=== PATIENT | female | born 1955 | race Caucasian/White ===

== ENCOUNTER 2024-10-23 22:22 | Emergency (ER) | payer MEDICARE, BC ==
[~2024-10-23] VITALS: Ht 157.5 cm; Wt 94.5 kg
[~2024-10-23 22:22] MED LIST: CARBIDOPA-LEVO1 EACH PO; CLONAZEPAM0.5 MG PO; FLUTICASONE PRO16 GM NAS; LEVOTHYROXINE200 MCG PO; RESTASIS1 DROP OD; SIMVASTATIN10 MG PO; TRAZODONE HCL50 MG PO; VENLAFAXINE HCL75 M1 PO
[2024-10-23] MEDS ORDERED: ENTRESTO 24 MG1 EACH PO (22:44)
[2024-10-23] MEDS ORDERED: DOXYCYCLINE MO100 MG PO (22:44)
[2024-10-23] MEDS ORDERED: CARVEDILOL25 MG PO (22:45)
[2024-10-23] MEDS ORDERED: FUROSEMIDE20 MG PO (22:45)
[2024-10-23] MEDS ORDERED: TIZANIDINE HCL2 MG PO (22:45)
[2024-10-23] MEDS ORDERED: DESONIDE15 GM TOP (22:47)
[2024-10-24] MEDS ORDERED: KETOROLAC TROMETHAMINE 30 MG/ML VIAL IM ONE (00:15)
[2024-10-24] MEDS ORDERED: LIDOCAINE HCL 4% 1 EACH PATCH TD ONE (02:00)
[2024-10-24] MEDS ORDERED: LIDODERM1 EACH TOP (02:01)
[2024-10-24 02:07] VITALS: BP 116/63
== END 2024-10-24 02:06 | disposition home or self-care (01) ==
LOC: ED 22:22
DX: S39.012A Strain of muscle, fascia and tendon of lower back, initial encounter (principal); I10 Essential (primary) hypertension; E11.9 Type 2 diabetes mellitus without complications; W07.XXXA Fall from chair, initial encounter; Z79.899 Other long term (current) drug therapy; Z79.51 Long term (current) use of inhaled steroids; Z88.1 Allergy status to other antibiotic agents; Z88.2 Allergy status to sulfonamides; Z88.5 Allergy status to narcotic agent; Z88.8 Allergy status to other drugs, medicaments and biological substances; Z91.048 Other nonmedicinal substance allergy status
CPT/HCPCS: 72131; 96372; 99283-25; A9270; J1885

== ENCOUNTER 2024-10-26 12:46 | Emergency (ER) | payer MEDICARE, BC ==
[~2024-10-26] VITALS: Ht 157.5 cm; Wt 101.2 kg
[~2024-10-26 12:46] MED LIST changes: +CARVEDILOL25 MG PO; +DESONIDE15 GM TOP; +DOXYCYCLINE MO100 MG PO; +ENTRESTO 24 MG1 EACH PO; +FUROSEMIDE20 MG PO; +LIDODERM1 EACH TOP; +TIZANIDINE HCL2 MG PO
--- OUTSIDE RECORDS SUMMARY | 2024-10-26 12:53 | XMS ---
PreManage Notification: HAZEL HENRIQUEZ Security Network Lead Events No recent Security Events currently on file CRITERIA MET - [facility] - 2 Visits in 30 Days CARE PROVIDERS There are no care providers on record at this time. [place] has no Care Guidelines for this patient. [facility]12 MO.) [facility] NOTE: Visits indicate total known visits. ED/C VISIT TRACKING (12 MO.) [facility]24 [facility] COMPLAINT: - BACK PAIN 10/23/2024 22:[address] [facility] [place] TYPE: Emergency COMPLAINT: - BACK PAIN DIAGNOSES: - Allergy status to narcotic agent - Allergy status to other antibiotic agents - Allergy status to other drugs, medicaments and biological substances - Allergy status to sulfonamides - Essential (primary) hypertension - Fall from chair, initial encounter - retirement (current) use of inhaled steroids - Low back pain, unspecified - Other fdc (current) drug therapy - Other nonmedicinal substance allergy status - Strain of muscle, fascia and tendon of lower back, initial encounter - Type 2 diabetes mellitus without complications INPATIENT VISIT TRACKING (12 MO.) No inpatient visits to display in this time frame [id number]
[2024-10-26] MEDS ORDERED: METFORMIN HCL500 M1 PO (14:59)
[2024-10-26] MEDS ORDERED: KETOROLAC TROMETHAMINE 30 MG/ML VIAL IM ONE (15:00)
[2024-10-26] MEDS ORDERED: METHOCARBAMOL500 MG PO (15:03)
[2024-10-26 15:38] VITALS: BP 136/95
== END 2024-10-26 15:15 | disposition home or self-care (01) ==
LOC: ED 12:46
DX: S50.812A Abrasion of left forearm, initial encounter (principal); S50.811A Abrasion of right forearm, initial encounter; S60.819A Abrasion of unspecified wrist, initial encounter; S80.819A Abrasion, unspecified lower leg, initial encounter; M54.50 Low back pain, unspecified; G89.29 Other chronic pain; I10 Essential (primary) hypertension; E11.9 Type 2 diabetes mellitus without complications; G47.30 Sleep apnea, unspecified; W01.0XXA Fall on same level from slipping, tripping and stumbling without subsequent striking against object, initial encounter; Z87.891 Personal history of nicotine dependence; Z79.899 Other long term (current) drug therapy; Z79.51 Long term (current) use of inhaled steroids; Z91.048 Other nonmedicinal substance allergy status; Z88.5 Allergy status to narcotic agent; Z88.1 Allergy status to other antibiotic agents; Z88.2 Allergy status to sulfonamides; Z88.8 Allergy status to other drugs, medicaments and biological substances
CPT/HCPCS: 96372; 99283-25; J1885

== ENCOUNTER 2024-12-07 12:41 | Emergency (ER) | payer MEDICARE, BC ==
[~2024-12-07] VITALS: Ht 157.5 cm; Wt 101.2 kg
[~2024-12-07 12:41] MED LIST changes: +METFORMIN HCL500 M1 PO; +METHOCARBAMOL500 MG PO
[2024-12-07] MEDS ORDERED: METHOCARBAMOL750 MG PO (13:23)
[2024-12-07] MEDS ORDERED: HYDROCODON-ACE1 EA11 PO (13:23)
[2024-12-07] MEDS ORDERED: GABAPENTIN300 MG PO (13:24)
[2024-12-07] MEDS ORDERED: ONDANSETRON ODT4 MG PO (13:31)
[2024-12-07 14:05] VITALS: BP 126/74
== END 2024-12-07 14:05 | disposition home or self-care (01) ==
LOC: ED 12:41
DX: G89.18 Other acute postprocedural pain (principal); M79.645 Pain in left finger(s); I10 Essential (primary) hypertension; E11.9 Type 2 diabetes mellitus without complications; G47.30 Sleep apnea, unspecified; Z79.51 Long term (current) use of inhaled steroids; Z79.84 Long term (current) use of oral hypoglycemic drugs; Z79.899 Other long term (current) drug therapy; Z91.048 Other nonmedicinal substance allergy status; Z88.5 Allergy status to narcotic agent; Z88.2 Allergy status to sulfonamides; Z88.1 Allergy status to other antibiotic agents; Z88.8 Allergy status to other drugs, medicaments and biological substances; Z87.891 Personal history of nicotine dependence
CPT/HCPCS: 99283

== ENCOUNTER 2025-03-26 10:50 | Day surgery (SDC) | payer MEDICARE, BC ==
[~2025-03-26] VITALS: Ht 157.5 cm; Wt 95.0 kg
[~2025-03-26 10:50] MED LIST changes: +GABAPENTIN300 MG PO; +HYDROCODON-ACE1 EA11 PO; +IBLOOD GLUCOSE TEST STRIP 1 EA TEST VI PRN; +LACTATED RINGER'S 1,000 ML IV SCH; +LIDOCAINE HCL 1% 5 ML SDV INJ ONE; +LIOTHYRONINE SO5 MCG PO; +METHOCARBAMOL750 MG PO; +OMEPRAZOLE20 MG PO; +ONDANSETRON ODT4 MG PO; +SYNTHROID150 MCG PO; +WEGOVY0.5 MG/0.5 SUB-Q
[2025-03-26 11:01] VITALS: BP 132/80
[2025-03-26] MEDS ORDERED: LIDOCAINE HCL 2% 5 ML SDV ONE (12:20)
[2025-03-26] MEDS ORDERED: fentaNYL citrate 100 MCG/2 ML VIAL ONE (13:49)
[2025-03-26] MEDS ORDERED: MIDAZOLAM HCL 5 MG/5 ML VIAL ONE (13:49)
[2025-03-26] MEDS ORDERED: SODIUM CHLORIDE 0.9% 100 ML IV ONE (13:51)
--- NOTE | 2025-03-26 13:53 | NUR ---
03/26/25 Tanvir3 Eve Ag PATIENT IS AWAKE. SHE DENIES PAIN. OXYGEN SATURATION REMAINS 100% ON 4L VIA NC. OXYGEN IS DISCONTINUED AT THIS TIME.
[2025-03-26 14:17] VITALS: BP 118/99
--- NOTE | 2025-03-26 15:55 | OR ---
[facility] [address], [place] [address] Signed DATE OF OPERATION: 03/26/2025 SURGEON: Blanca Salinas MD PREOPERATIVE DIAGNOSIS: Persistent constipation. POSTOPERATIVE DIAGNOSES: 1. Extensive sigmoid and left-sided diverticulosis. 2. Small polyps x3. PROCEDURE: Total colonoscopy to cecum with cold morcellation polypectomy x3. ANESTHESIA: Intravenous sedation, propofol infusion; Hannah Garcia CRNA. INDICATION: This 69-year-old white woman is a patient of Dr. Kvng Colon and has persistent constipation. She has no family history of colon cancer that she is aware of, though possibly a paternal grandfather may have had colon cancer. She has no current symptoms of rectal bleeding or diarrhea. The patient does take 2 teaspoons of MiraLAX on a daily basis, also takes Wegovy which she notes does cause some level of constipation. She is admitted at this time to undergo colonoscopy to assess for source of her constipation and particularly to rule out malignancy. Her last colonoscopy 10 years ago in 2014 showed profound diverticular changes of the sigmoid and left colon, but no sign of polyps. Additionally, the patient has had pacemaker defibrillator placement approximately three years ago and does have underlying numerous medical problems including hypertension, sleep apnea, and home oxygen use from time to time. On that basis, propofol infusional sedation is recommended. FINDINGS: The prep was adequate. Complete colonoscopy was undertaken of the cecum with full intubation of the cecum. She had profound diverticular changes throughout the left colon and sigmoid. There were three small polyps, two in the proximal left colon, another in the rectosigmoid, all excised with cold morcellation technique. DESCRIPTION OF PROCEDURE: The patient was brought to the endoscopy suite and placed in the lateral decubitus position, given intravenous sedation to the point of slurred speech and nystagmus. Electronically Signed By: BLANCA SALINAS MD 03/26/25 1555 PATIENT NAME: HAZEL HENRIQUEZ OPERATIVE REPORT DATE OF : 51 REPORT #: [id number] PHYSICIAN: BLANCA SALINAS MD PCP: KVNG COLON MD REPORT IS CONFIDENTIAL AND NOT TO BE RELEASED WITHOUT AUTHORIZATION [facility] [address], [place] [address] Signed Digital rectal examination was normal. An Olympus video colonoscope was passed in the rectum and manipulated throughout the colon noting numerous diverticula of the sigmoid and left colon. Ultimately, scope was passed to the cecum. The ileocecal valve and appendiceal orifice were normal. The scope was withdrawn from that point and examination throughout showed no abnormality until the proximal descending colon where two small polyps were noted, they were excised with cold morcellation technique. They had characteristics suggestive of adenomas. Diverticula were once again noted in the left colon and upon withdrawal of the scope at the rectosigmoid, there was a small polyp as well, this was excised with cold morcellation technique. The scope was withdrawn. Retroflexed view undertaken showed internal hemorrhoids. The scope was withdrawn and removed. The patient was taken to the recovery room in good condition. CONCLUDING DIAGNOSES: 1. Profound diverticulosis, most likely accounting for her constipation. 2. Three small polyps, none of them malignant. 3. Internal hemorrhoids. PLAN: Would recommend continued use of MiraLAX 2 scoops daily but add Metamucil powder one scoop daily as well. She will return to the ongoing care of Dr. Kvng Colon. Would recommend repeat colonoscopy in 10 years, sooner if symptoms should develop. MD JAMES Ray/JOSAFATL /[id number] cc: Kvng Colon MD Copies: KVNG COLON MD ~ Electronically Signed By: BLANCA SALINAS MD 03/26/25 1555 PATIENT NAME: HAZEL HENRIQUEZ OPERATIVE REPORT DATE OF : 51 REPORT #: [id number] PHYSICIAN: BLANCA SALINAS MD PCP: KVNG COLON MD REPORT IS CONFIDENTIAL AND NOT TO BE RELEASED WITHOUT AUTHORIZATION
--- NOTE | 2025-03-26 20:40 | EKG ---
[facility] [address] [facility] [place] [address] Signed Suspect unspecified pacemaker failure Ventricular-paced rhythm Abnormal ECG No previous ECGs available Confirmed by RISHI SCHULTE MD ([id number]) on 03/26/2025 8:40:01 PM Electronically Signed By: RISHI CSHULTE 03/26/252039 PATIENT NAME: HAZEL HENRIQUEZ Electrocardiogram DATE OF : 51 PHYSICIAN: RISHI SCHULTE REPORT #: [id number] REPORT IS CONFIDENTIAL AND NOT TO BE RELEASED WITHOUT AUTHORIZATION
--- NOTE | 2025-03-28 12:40 | PATH ---
[facility] [address] [place], [place] [address] Signed SPECIMEN(S): A DESCENDING POLYP SPECIMEN(S): B SIGMOID POLYP SPECIMEN SOURCE: A. DESCENDING POLYP B. SIGMOID POLYP CLINICAL HISTORY: Screening, chronic constipation, polyps X3, diverticulosis, internal hemorrhoids FINAL PATHOLOGIC DIAGNOSIS: A. Descending polyp: - Tubular adenoma B. Sigmoid polyp: - Hyperplastic polyp BB MICROSCOPIC EXAMINATION: Histologic sections of all submitted blocks are examined by light microscopy. These findings, together with the gross examination, support the pathologic diagnosis. GROSS DESCRIPTION: A. The specimen, labeled and designated "Ty, descending polyp," is received in formalin and consists of two haque soft tissue fragments, ranging from 0.2-0.3 cm. Entirely submitted in (A1). B. The specimen, labeled and designated "Ty, sigmoid polyp," is received in formalin and consists of four haque soft tissue fragments, ranging from 0.1-0.2 cm. Entirely submitted in (B1). VB (under the direct supervision of a pathologist) The Gross Description was prepared using a voice recognition system. The report was reviewed for accuracy; however, sound-alike word errors, addition and/or deletions may occur. If there is any question about this report, please contact Client Services. ADDITIONAL NOTES: Immunohistochemical and/or in situ hybridization studies if performed in this case included appropriate positive controls that reacted as expected. This test was developed and its performance characteristics determined by [facility]. It has not been cleared or PATIENT NAME: HAZEL HENRIQUEZ PATHOLOGY DATE OF : 51 REPORT #: [id number] PHYSICIAN: STAR ARAGON PCP: KVNG TSAI MD REPORT IS CONFIDENTIAL AND NOT TO BE RELEASED WITHOUT AUTHORIZATION [facility] [address] [place], [place] [address] Signed approved by the U.S. Food and Drug Administration. The FDA has determined that such clearance or approval is not necessary. This test is used for clinical purposes. It should not be regarded as investigational or for research. [facility] is certified under the Clinical Laboratory Improvement Amendments of 1988 (CLIA) as qualified to perform high complexity clinical laboratory testing. PERFORMING LABORATORY: Technical component was performed by [facility], [address] [place] [address] (CLIA# [id number]). Professional interpretation was performed by [facility] [address] (CLIA#: [id number]). Diagnostician: Laureano Escudero MD Pathologist Electronically Signed 03/28/2025 Copies: ~ PATIENT NAME: HAZEL HENRIQUEZ PATHOLOGY DATE OF : 51 REPORT #: [id number] PHYSICIAN: STAR ARAGON PCP: KVNG TSAI MD REPORT IS CONFIDENTIAL AND NOT TO BE RELEASED WITHOUT AUTHORIZATION
== END 2025-03-26 14:28 | disposition home or self-care (01) ==
LOC: DS 10:50
PROVIDERS: ATTEND Surgery
PROC: 0DBN8ZX Excision of Sigmoid Colon, Via Natural or Artificial Opening Endoscopic, Diagnostic (ICD-10-PCS; 2025-03-26)
PROC: 0DBG8ZX Excision of Left Large Intestine, Via Natural or Artificial Opening Endoscopic, Diagnostic (ICD-10-PCS; principal; 2025-03-26 11:45)
DX: K59.09 Other constipation (principal); D12.4 Benign neoplasm of descending colon; K63.5 Polyp of colon; K57.30 Diverticulosis of large intestine without perforation or abscess without bleeding; K64.8 Other hemorrhoids; I10 Essential (primary) hypertension; G47.30 Sleep apnea, unspecified; E03.9 Hypothyroidism, unspecified; G25.81 Restless legs syndrome; E66.9 Obesity, unspecified; Z68.38 Body mass index [BMI] 38.0-38.9, adult; Z95.810 Presence of automatic (implantable) cardiac defibrillator; Z79.890 Hormone replacement therapy; Z79.899 Other long term (current) drug therapy; Z88.1 Allergy status to other antibiotic agents; Z88.2 Allergy status to sulfonamides; Z88.5 Allergy status to narcotic agent; Z88.8 Allergy status to other drugs, medicaments and biological substances
CPT/HCPCS: 00811; 88305; 93005; 93010; J2003; J2250; J2704; J3010; J7121